=== PATIENT | female | born 2000 | race Two or more races ===

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

== ENCOUNTER 2025-01-15 14:31 | Emergency (ER) | payer MEDICAID, OTHER ==
[~2025-01-15] VITALS: Ht 170.2 cm; Wt 76.6 kg
--- NOTE | 2025-01-15 15:05 | ED.PDOC ---
GI ASSESSMENT HPI Comments A 24 YEAR OLD FEMALE PRESENTS TO THE ED WITH COMPLAINT OF BLOOD IN STOOL AND CONSTIPATION. PATIENT STATES SHE HAS BEEN EXPERIENCING DIFFICULTY WHEN HAVING BOWEL MOVEMENTS/SMALL AND HARD BOWEL MOVEMENTS AND BLOOD IN HER STOOL OFF AND ON FOR THE PAST 1 WEEK. PATIENT DENIES FEVER, CHILLS, SHORTNESS OF BREATH, CHEST PAIN, ABDOMINAL PAIN, NAUSEA, VOMITING, HEADACHE, OR OTHER COMPLAINTS. NO OTHER SYMPTOMS OR MODIFYING FACTORS AT THIS TIME. PATIENT IS ALERT, ORIENTED X 4, AND HAS STEADY GAIT. Chief Complaint: GI Bleed Time Seen by MD: 14:36 Primary Care Provider: MD HOLDEN Reviewed Notes: Nurses Notes, Medications, Allergies Allergies: Coded Allergies: NO KNOWN ALLERGIES (Unverified , 08/30/14) Home Meds Active Scripts Hydrocortisone Acetate (Anusol-Hc) 25 Mg Sup, 1 SUPP [place] BID, #28 SUPP Prov:AILEEN PAL 01/15/25 Docusate Sodium (Colace) 100 Mg Cap, 1 CAP PO BID, #30 CAP Prov:AILEEN PAL 01/15/25 Mode of Arrival: Ambulatory Timing: Days Duration: Since onset, Days Prehospital treatment: None Quality: Aching, Cramping Vomitus: None Stool: Minimal Severity: Moderate Recent: None Recent Hx of: None Pain Location: None Modifying Factors: Nothing Associated sign and symptoms: Constipation, Blood in Stool Past Medical History PAST MEDICAL HISTORY: Denies Surgical History: Denies all surgeries PATENT CHEMIST History: No Pertinent PATENT CHEMIST History Family History Family History: Reviewed,noncontributory to illness Social History Smoker: Non-Smoker Alcohol: Denies ETOH Use Drugs: Denies Drug Use Lives In: Home Constitutional: denies: chills, diaphoresis, fatigue, fever, malaise, sweats, weakness, others EENTM: denies: blurred vision, double vision, ear bleeding, ear discharge, ear drainage, ear pain, ear ringing, eye pain, eye redness, hearing loss, mouth pain, mouth swelling, nasal discharge, nose bleeding, nose congestion, nose pain, photophobia, tearing, throat pain, throat swelling, voice changes, others Respiratory: denies: cough, hemoptysis, orthopnea, SOB at rest, shortness of breath, SOB with excertion, stridor, wheezing, others Cardiovascular: denies: chest pain, dizzy spells, diaphoresis, Dyspnea on exertion, edema, irregular heart beat, left arm pain, lightheadedness, palpitations, PND, syncope, others Gastrointestinal: reports: blood streaked bowels, constipated; denies: abdomen distended, abdominal pain, diarrhea, dysphagia, difficulty swallowing, hematemesis, melena, nausea, poor appetite, poor fluid intake, rectal bleeding, rectal pain, vomiting, others Genitourinary: denies: abnormal vagina bleeding, burning, dyspareunia, dysuria, flank pain, frequency, hematuria, incontinence, pain, , vagina discharge, urgency, others Neurological: denies: dizziness, fainting, headache, left sided numbness, left sided weakness, numbness, paresthesia, pre-existing deficit, right sided numbness, right sided weakness, seizure, speech problems, tingling, tremors, weakness, others Musculoskeletal: denies: back pain, gout, joint pain, joint swelling, muscle pain, muscle stiffness, neck pain, others Integumetry: denies: bruises, change in color, change in hair/nails, dryness, laceration, lesions, lumps, rash, wounds, others Allergic/Immunocompromised: denies: Difficulty Healing, Frequent Infections, Hives, Itching, others Hematologic/Lymphatic: denies: anemia, blood clots, easy bleeding, easy bruising, swollen glands, others Endocrine: denies: excessive hunger, excessive sweating, excessive thirst, excessive urination, flushing, intolerance to cold, intolerance to heat, unexplained weight gain, unexplained weight loss, others Psychiatric: denies: anxiety, bipolar disorder, depression, hopeless, panic disorder, schizophrenia, sleepless, suicidal, others All Other Systems: Reviewed and Negative Physical Exam General Appearance: No Apparent Distress, Normal HEENT: Normal ENT Inspection, PERRL/EOMI, Pharynx Normal, TMs Normal Neck: Full Range of Motion, Non-Tender, Normal, Normal Inspection Respiratory: Chest Non-Tender, Lungs Clear, No Accessory Muscle Use, No Respiratory Distress, Normal Breath Sounds Cardiovascular: No Edema, No JVD, No Murmur, No Gallop, Normal Peripheral Pulses, Regular Rate/Rhythm Breast Exam: Deferred Gastrointestinal: No Organomegaly, Non Tender, No Pulsatile Mass, Normal Bowel Sounds, Soft Genitalia: Deferred Pelvic: Deferred Rectal: Heme positive stool, Hemorrhoids (+INTERNAL HEMORRHOIDS WITH MILD BLOOD, NO RECTAL BLEEDING AND BLOOD CLOTS. ), Normal rectal tone, Tenderness (RECTAL EXAM WITH INTERNAL HEMORRHOIDS. ) Extremities: No calf tenderness, Normal capillary refill, Normal inspection, Normal range of motion, Non-tender, No pedal edema Musculoskeletal : Apperance: Normal Neurologic: Alert, sorter upholstery parts II-XII nml as Tested, No Motor Deficits, Normal Affect, Normal Mood, No Sensory Deficits Cerebellar Function: Normal Reflexes: Normal Skin: Dry, Normal Color, Warm Peripheral Pulses: 2+ carotid (R), 2+ carotid (L) Lymphatic: No Adenopathy Was a procedure done? Was a procedure done?: No GI differential Dx Differential Diagnosis: Constipation, Gastritis/PUD, Gastroenteritis, GI hemorrhage, UTI, Impaction, Other (INTERNAL HEMORRHOIDS ) X-Ray, Labs, Meds, VS Vital Signs Date Time Temp Pulse Resp B/P (MAP) Pulse Ox O2 Delivery O2 Flow Rate FiO2 01/15/25 15:35 70 16 99 Room Air 01/15/25 15:35 98.6 70 16 122/82 (95) 99 98.6 01/15/25 14:32 97.5 70 16 132/82 99 97.5 Lab Test 01/15/25 15:09 01/15/25 15:03 01/15/25 14:59 Range/Units White Blood Count 4.4 4.4-10.8 10^3/uL Red Blood Count 4.92 4.0-5.20 10^6/uL Hemoglobin 13.6 12.2-16.2 g/dL Hematocrit 41.1 36.0-46.0 % Mean Corpuscular Volume 83.6 80.0-100.0 fL Mean Corpuscular Hemoglobin 27.7 L 28.0-32.0 pg Mean Corpuscular Hemoglobin Concent 33.1 32.0-36.0 g/dL Red Cell Distribution Width 13.1 11.8-14.3 % Platelet Count 197 140-450 10^3/uL Mean Platelet Volume 9.5 6.9-10.8 fL Neutrophils (%) (Auto) 59.8 37.0-80.0 % Lymphocytes (%) (Auto) 30.3 10.0-50.0 % Monocytes (%) (Auto) 8.6 0.0-12.0 % Eosinophils (%) (Auto) 0.9 0.0-7.0 % Basophils (%) (Auto) 0.4 0.0-2.0 % Neutrophils # (Auto) 2.6 1.6-8.6 10 ^3/uL Lymphocytes # (Auto) 1.3 0.4-5.4 10 ^3/uL Monocytes # (Auto) 0.4 0-1.3 10 ^3/uL Eosinophils # (Auto) 0 0-0.8 10 ^3/uL Basophils # (Auto) 0 0-0.2 10 ^3/uL Nucleated Red Blood Cells 0.1 % Prothrombin Time Pending Prothrombin Time INR Pending Sodium Level 139 136-145 mmol/L Potassium Level 4.1 3.5-5.1 mmol/L Chloride Level 103 98-107 mmol/L Carbon Dioxide Level 28 20-31 mmol/L Anion Gap 8 5-15 Blood Urea Nitrogen 11 9-23 mg/dL Creatinine 0.68 0.550-1.02 mg/dL Glomerular Filtration Rate Calc 126 >90 mL/min BUN/Creatinine Ratio 16.2 10.0-20.0 Serum Glucose 98 74-106 mg/dL Calcium Level 9.5 8.7-10.4 mg/dL Stool Occult Blood Sample #3 Pending Urine Color Light-yellow Yellow Urine Clarity Clear Clear Urine pH 6.0 5.0-9.0 Urine Specific [place] 1.025 1.001-1.035 Urine Protein Negative Negative Urine Ketones Negative Negative Urine Blood Negative Negative /uL Urine Nitrite Negative Negative Urine Bilirubin Negative Negative Urine Urobilinogen Normal Negative mg/dL Urine Leukocyte Esterase Negative Negative /uL Urine RBC 2 0 - 4 /hpf Urine Microscopic WBC 1 0-5 /HPF Urine Squamous Epithelial Cells Few <5 /hpf Urine Bacteria None seen None Seen /hpf Urine Mucus Few None Seen Urine Glucose Normal Normal mg/dL EXAM: CT CT AB PEL WO CON-NO ORAL OR IV HISTORY: CONSTIPATION WITH BLOOD IN THE STOOL Comparison Study: None Exam Date: 01/15/2025 03:11 PM Radiation Dose Information: CT Dose: CTDI volume is 11.5 mGy. Dose-length product is 681 mGy*cm Technique: Multidetector CT of the abdomen and pelvis was performed. Imaging was performed without IV contrast. Axial, coronal and sagittal multiplanar reformats were obtained from the axial data set by the technologist. Findings: Lack of intravenous contrast compromises evaluation of perfusion and for isodense lesions. Lower chest: Clear. Liver: Unremarkable Biliary system: Unremarkable Spleen: Unremarkable Pancreas: Unremarkable. Adrenals: Unremarkable. Kidneys and ureters: No hydronephrosis Bowel: No obstruction. Normal appendix. Bladder: Unremarkable Reproductive organs: No abnormal mass. Lymph nodes: Unremarkable. Peritoneum: Unremarkable Vessels: Patency not evaluated on this noncontrast study. Bones and soft tissue: Small sclerotic focus in the left proximal femur likely bone island. IMPRESSION: No acute CT findings in the abdomen and pelvis. ATED BY: GEOVANNI RAMOS MD DICTATED DATE/TIME: 01/15/251546 SIGNED BY: GEOVANNI RAMOS MD SIGNED DATE/TIME: 01/15/251546 CC: X-Ray, Labs, Meds, VS Comment EXTERNAL MEDICAL RECORDS REVIEWED: [NONE] INDEPENDENT HISTORIANS: [NONE] SOCIAL DETERMINANTS OF HEALTH: [NONE] LABS ORDERED: CBC, BMP, UA, OCCULT BLOOD STOOL, PT PTT REVIEWED AND INTERPRETED RESULTS: OCCULT BLOOD POSITIVE IMAGING ORDERED: CT ABD/PEL TREATMENTS ORDERED: NONE PROCEDURES PERFORMED: NONE CRITICAL CARE TIME: NONE I HAVE DISCUSSED THE PATIENT WITH THE ATTENDING PHYSICIAN DR. CAMACHO AND HE AGREES WITH THE PATIENT'S PLAN OF CARE AND DISPOSITION. BASED ON HISTORY OF PRESENT ILLNESS, AND PHYSICAL EXAM, PATIENT WILL BE DISCHARGED HOME. DISCUSSED PLAN FOR DISCHARGE HOME WITH RX [COLACE AND ANUSOL SUPPOSITORY]. MEDICATION WARNINGS GIVEN. SHARED DECISION MAKING: DISCUSSED WITH PATIENT THAT THEIR WORKUP WAS NORMAL. PATIENT INSTRUCTED TO FOLLOW UP WITH PRIMARY CARE PROVIDER IN 1-2 DAYS FOR RE- EVALUATION OF SYMPTOMS. PATIENT VERBALIZES UNDERSTANDING TO RETURN TO ED FOR NEW OR WORSENING SYMPTOMS OR IF FOLLOW UP WITH PCP CANNOT BE OBTAINED. PATIENT FEELS COMFORTABLE GOING HOME AT THIS TIME. ALL QUESTIONS ADDRESSED AT TIME OF DISCHARGE. Images Reviewed?: Images reviewed and evaluated by me Time of 1ST Reevaluation: 16:43 Reevaluation 1ST: Improved Patient Education/Counseling: Diagnosis, Treatment, Need For Follow Up Family Education/Counseling: Diagnosis, Treatment, Need For Follow Up Medical Screening: No EMC Exist At This Time SEPSIS Sepsis Screen Date sepsis recognized/suspect: Jan 15, 2025 Time Sepsis recognized/suspect: 1435 Recent Procedure: No On Antibiotic Therapy: No Respiratory Rate >20: No Heart Rate >90: No Temp<36 C (96.8 F) or >38.3 C: No SBP <90 or MAP <65 mmHG: No New Acute Mental Status Change: No Is the patient on CPAP, BIPAP,: No Physician Orders Stool Occult Blood (01/15/25 14:58) Prothrombin Time W/ Inr (01/15/25 15:03) Ct Ab Pel Wo Con-No Oral Or Iv (01/15/25 15:03) Vital Signs Date Time Temp Pulse Resp B/P (MAP) Pulse Ox O2 Delivery O2 Flow Rate FiO2 01/15/25 15:35 70 16 99 Room Air 01/15/25 15:35 98.6 70 16 122/82 (95) 99 98.6 01/15/25 14:32 97.5 70 16 132/82 99 97.5 Laboratory Tests Test 01/15/25 15:09 White Blood Count 4.4 10^3/uL (4.4-10.8) Departure 1 Departure Time of Disposition: 16:43 Impression: Primary Impression: Internal hemorrhoids Additional Impression: Constipation Qualified Codes: K59.00 - Constipation, unspecified Disposition: HOME / SELF CARE / HOMELESS Condition: Stable Additional Instructions: FOLLOW-UP WITH PCP IN 1 TO 2 DAYS. TAKE MEDICATIONS PRESCRIBED. RETURN TO ED FOR ANY NEW OR WORSENING SYMPTOMS. e-Prescriptions Hydrocortisone Acetate (Anusol-Hc) 25 Mg Sup 1 SUPP [place] BID, #28 SUPP Prov: AILEEN PAL 01/15/25 Docusate Sodium (Colace) 100 Mg Cap 1 CAP PO BID, #30 CAP Prov: AILEEN PAL 01/15/25 Discharged With: Self, Relative Critical Care Note Critical Care Time?: No Stability Stability form required: No I personally scribed for AILEEN PAL ([email or web address]) on 01/15/25 at 15:04. Electronically submitted by Gunnar Haque ([email or web address]). I personally scribed for AILEEN PAL ([email or web address]) on 01/15/25 at 16:40. Electronically submitted by Gunnar Haque ([email or web address]). I personally scribed for AILEEN PAL ([email or web address]) on 01/15/25 at 16:41. Electronically submitted by Gunnar Haque ([email or web address]). AILEEN PAL Jan 15, 2025 15:04
[2025-01-15 15:35] VITALS: BP 122/82; PULSE 70; RESP 16; TEMP 98.6; O2SAT 99
[2025-01-15 15:36] LABS: Hematocrit 41.1 % (36.0-46.0); Hemoglobin 13.6 g/dL (12.2-16.2); Mean Corpuscular Hemoglobin 27.7 pg (28.0-32.0); Mean Corpuscular Volume 83.6 fL (80.0-100.0); Nucleated Red Blood Cells % 0.1 %
[2025-01-15 15:43] LABS: Chloride 103 mmol/L (98-107); Potassium 4.1 mmol/L (3.5-5.1); Sodium 139 mmol/L (136-145)
[2025-01-15 15:44] LABS: Anion Gap 8 (5-15); Calcium 9.5 mg/dL (8.7-10.4); Carbon Dioxide 28 mmol/L (20-31)
[2025-01-15 15:49] LABS: BUN/Creatinine Ratio 16.2 (10.0-20.0); Blood Urea Nitrogen 11 mg/dL (9-23); Glucose 98 mg/dL (74-106)
--- NOTE | 2025-01-15 15:50 | DVH ---
EXAM: CT CT AB PEL WO CON-NO ORAL OR IV HISTORY: CONSTIPATION WITH BLOOD IN THE STOOL Comparison Study: None Exam Date: 01/15/2025 03:11 PM Radiation Dose Information: CT Dose: CTDI volume is 11.5 mGy. Dose-length product is 681 mGy*cm Technique: Multidetector CT of the abdomen and pelvis was performed. Imaging was performed without IV contrast. Axial, coronal and sagittal multiplanar reformats were obtained from the axial data set by the technologist. Findings: Lack of intravenous contrast compromises evaluation of perfusion and for isodense lesions. Lower chest: Clear. Liver: Unremarkable Biliary system: Unremarkable Spleen: Unremarkable Pancreas: Unremarkable. Adrenals: Unremarkable. Kidneys and ureters: No hydronephrosis Bowel: No obstruction. Normal appendix. Bladder: Unremarkable Reproductive organs: No abnormal mass. Lymph nodes: Unremarkable. Peritoneum: Unremarkable Vessels: Patency not evaluated on this noncontrast study. Bones and soft tissue: Small sclerotic focus in the left proximal femur likely bone island. IMPRESSION: No acute CT findings in the abdomen and pelvis.
[2025-01-15 16:30] LABS: Urine Protein, UAD Negative (Negative)
[2025-01-15] MEDS ORDERED: HYDR25SU21 PR (16:42)
[2025-01-15] MEDS ORDERED: DOCU-94 PO (16:42)
[2025-01-15 16:48] LABS: INR 1.01 (0.9-1.15); Prothrombin Time 10.7 sec (9.3-11.8)
== END 2025-01-15 16:45 | disposition home or self-care (01) ==
LOC: ER 14:31
DX: K64.8 Other hemorrhoids (principal); K59.00 Constipation, unspecified; Z79.899 Other long term (current) drug therapy
CPT/HCPCS: 36415; 74176; 80048; 81001; 82270; 85025; 85610